=== PATIENT | male | born 2000 | race Caucasian/White ===

== ENCOUNTER → 2023-12-25 | Day surgery (SDC) | payer OTHER ==
[2023-12-21 14:01] LABS: Urine Bacteria None Seen /hpf (None Seen); Urine WBC None Seen /hpf (0 - 3)
[2023-12-21 14:03] LABS: Basophils # (auto) 0 10 ^3/uL (0-0.2); Basophils % (auto) 0.3 % (0.0-2.0); Eosinophils # (auto) 0.2 10 ^3/uL (0-0.8); Eosinophils % (auto) 2.7 % (0.0-7.0); Hematocrit 43.7 % (41.0-53.0); Hemoglobin 15.4 g/dL (13.5-17.5); Lymphocytes # (auto) 2.7 10 ^3/uL (0.4-5.4); Lymphocytes % (auto) 29.5 % (10.0-50.0); Mean Corpuscular Hemoglobin 30.8 pg (28.0-32.0); Mean Corpuscular Hgb Conc. 35.3 g/dL (32.0-36.0); Mean Corpuscular Volume 87.3 fL (80.0-100.0); Monocytes # (auto) 0.6 10 ^3/uL (0-1.3); Monocytes % (auto) 6.6 % (0.0-12.0); Neutrophils # (auto) 5.5 10 ^3/uL (1.6-8.6); Neutrophils % (auto) 60.9 % (37.0-80.0); Platelet Count (auto) 241 10^3/uL (140-450)
[2023-12-21 14:20] LABS: INR 1.04 (0.9-1.15); Partial Thromboplastin Time 26.9 SEC (24.5-34.5)
[2023-12-21 14:32] LABS: Alanine Aminotransferase 26 U/L (7-40); Alkaline Phosphatase 76 U/L (46-116)
[2023-12-21 14:33] LABS: Anion Gap 5 (5-15); Aspartate Aminotransferase 18 U/L (13-40); BUN/Creatinine Ratio 12.7 (10.0-20.0); Bilirubin, Total 0.8 mg/dL (0.2-1.0); Blood Urea Nitrogen 13 mg/dL (9-23); Carbon Dioxide 30 mmol/L (20-31); Chloride 105 mmol/L (98-107); Glucose 97 mg/dL (74-106); Potassium 4.3 mmol/L (3.5-5.1); Sodium 140 mmol/L (136-145); Total Protein 7.3 g/dL (5.7-8.2)
[2023-12-21 14:40] LABS: Urine Amorphous Crystal FEW /hpf (None Seen); Urine Blood Negative /uL (Negative); Urine Clarity Clear (Clear); Urine Color Yellow (Yellow); Urine Protein, UAD Negative (Negative); Urine Specific Gravity 1.025 (1.001-1.035); Urine Urobilinogen Normal (Negative); Urine pH 6.5 (5.0-9.0)
[~2023-12-25] VITALS: Ht 177.8 cm; Wt 95.3 kg
[~2023-12-25] MED LIST: ACETAMINOPHEN IV 100 ML IV ONE; ACETAMINOPHEN IV 1000 MG/100ML (10MG/ML) IV ONE; BUPIVACAINE HCL 50 ML ONE; CELECOXIB 100 MG CAP ONE; CELECOXIB 100 MG CAP PO ONE; DexAMETHasone SOD PHOS 10MG/1ML VIAL INJ ONE; FLUMAZENIL 0.1 MG/ML INJ 10ML MDV IV PRN; GABAPENTIN 400 MG CAP ONE; GABAPENTIN 400 MG CAP PO ONE; GLYCOPYRROLATE 0.2 MG/ML 1ML VIAL ONE; HYDROmorphone HCL 2 MG/ML VL/or syr IV PRN; KETAMINE 50mg/ML 1ml syringe ONE; KETOROLAC TROMETH 30 MG/ML 1ML VIAL ONE; LIDOCAINE 2% (LOCAL ANESTH.) PF 5ml SDV ONE; NALOXONE HCL 0.4 MG/ML VIAL IV PRN; ONDANSETRON HCL 4 MG/2 ML VIAL IV PRN; ONDANSETRON HCL 4 MG/2 ML VIAL ONE; PROPOFOL 10 MG/ML 20 ML IV ONE; ceFAZolin 2 GM/D5W100ml 100 ML IV ONE; ePHEDrine SULFATE 50 MG/ML AMP IV PRN; fentaNYL CITRATE 100 MCG/2 ML VL IV PRN; fentaNYL CITRATE 100 MCG/2 ML VL ONE; hydrALAZINE HCL 20 MG/ML VL IV PRN; oxyCODONE HCL 5MG TAB PO PRN
[2023-12-25 12:54] VITALS: PULSE 82; RESP 11; TEMP 98.2; O2SAT 93
--- NOTE | 2023-12-25 13:04 | DVH ---
EXAM: XY R ANKLE 3 VIEW, XY C ARM FLUOROSCOPY UP TO 60MIN HISTORY: RIGHT ANKLE ARTHROSCOPY/ ANTERIOR TALOFIBULAR LIGAMENT RECON FLUOROSCOPY TIME: 35.5 seconds Total Dose: 0.53 mGy FLUOROSCOPY IMAGES: 4 TECHNIQUE: Intraoperative radiographs of the right ankle were obtained. COMPARISON: None FINDINGS/IMPRESSION: Refer to intraoperative report for further evaluation.
[2023-12-25 13:55] VITALS: BP 117/67; PULSE 55; RESP 19; O2SAT 99
--- NOTE | 2024-01-08 11:12 | DVHOP2 ---
Operative Report - 2 Report Details Date: 12/25/23 Preop Diagnosis: Right ankle instability Postop Diagnosis: Right ankle instability Surgeon: Dawood Power MD Anesthesiologist: Troy Taylor CRNA Anesthesia: General, Regional Implant: Arthrex FiberTak x2, Arthrex InternalBrace x1, SwiveLock x2 Consent: The patient was informed of the risks and benefits of the procedure. These include but are not limited to complications of anesthesia, postoperative infection, incomplete relief of symptoms, recurrence of symptoms, damage to blood vessels, nerves and tendons, deep venous thrombosis, pulmonary embolism and possible need for repeat surgery in the future. Complications: None Estimated Blood Loss: Less than 5 mL Indications for Surgery: The patient is a 23-year-old who presented to the clinic with a history of ankle pain and instability. He had failed nonoperative management. Surgery in the form of ankle arthroscopy, synovial debridement, ankle ligament repair with Brostrom modification with or without internal brace was discussed with him. Benefits, risks and treatment alternatives were discussed. Specific complications of the surgery such as neurovascular injury, infection, arthrofibrosis, loss of limb or life were discussed. The patient decided to proceed with the surgical option. Name of Procedure Performed Right ankle arthroscopy, synovial debridement, anterior talofibular ligament repair with Brostrom modification and internal brace augmentation Procedure Details Procedure Details: The patient was identified in the preoperative holding area and the surgical site was marked. The consent was verified. The patient was brought into the operating room and placed supine on the operating table. General anesthesia was administered. Intravenous antibiotics were given. The extremity was prepped and draped in the usual sterile manner. A time-out was called to confirm the nature of patient, the nature of surgery, the site of surgery, the availability of implants and x-rays and allergies to medications. The tibialis anterior tendon was palpated and was marked. The joint lines was identified. The joint was now insufflated with a spinal needle medial to the tibialis anterior tendon. A small incision was made. Next a hemostat was inserted to dilate the portal. A trocar and cannula was inserted. A 30 degree scope was inserted. An anterolateral portal was established with the help of a spinal needle as well. A probe was inserted and the findings were as follows 1. Anterior synovial impingement 2. Significant laxity with positive drive-through sign all the way to the posterior 3. No significant cartilage damage Synovial debridement was carried out with the help of a shaver. I proceeded with the open part of the procedure. An incision was made of the anterolateral bundle of the fibula. The skin of the subcutaneous tissue were dissected. The deep fascia was incised. The anterior talofibular ligament was exposed. This was attenuated and thin least stretched. I decided to repair this along with Brostrom modification from the extensor retinaculum. However, I also decided to add an internal brace because of the significant tear and laxity. Two FiberTak suture anchors were inserted on the anterior distal fibula. Next, the talus was exposed. The subtalar joint was also exposed. A guide was now inserted for the guide pin. AP and lateral images were obtained to confirm that the trajectory of the guide pin is satisfactory and not in the articular cartilage. Next a drill was used. A SwiveLock anchor was inserted. This had the internal brace attached to it. Next another drill hole was created between the two all suture anchors on the distal fibula. The ankle was now held in eversion and the SwiveLock was inserted along with the internal brace for excellent fixation. The sutures from the all suture anchors were now passed through the anterior talofibular ligament and the extensor retinaculum and were tied in a simple fashion. Excellent fixation was noted. The ankle was very stable after the fixation. The tourniquet was released. The skin incision was closed in layers of 0 Vicryl and 2-0 Vicryl. Sterile dressing was applied. The leg was placed in a cam walker. Disposition: Good, the patient was extubated and taken to the recovery without any complications Plan: Partial weight-bearing. To follow up in two weeks and to initiate physical therapy at 4-6 weeks. Condition Good Disposition Home DAWOOD POWER MD Jan 08, 2024 11:12
== END | disposition home or self-care (01) ==
LOC: SUR 07:13
PROVIDERS: ATTEND Orthopaedic Surgery Sports Medicine
DX: M25.371 Other instability, right ankle (principal); S93.491A Sprain of other ligament of right ankle, initial encounter; G89.18 Other acute postprocedural pain; E66.01 Morbid (severe) obesity due to excess calories; K21.9 Gastro-esophageal reflux disease without esophagitis; Z68.30 Body mass index [BMI] 30.0-30.9, adult; Z90.89 Acquired absence of other organs; Z98.890 Other specified postprocedural states; X58.XXXA Exposure to other specified factors, initial encounter; Y93.89 Activity, other specified; Y92.89 Other specified places as the place of occurrence of the external cause; Y99.8 Other external cause status
CPT/HCPCS: 27698; 29897; 36415; 64445; 73610; 80053; 81001; 85025; 85610; 85730; C1713; J1100; J1885; J2003; J2405; J2704; J3010; J3490; Q4125; 76000; J0131